=== PATIENT | female | born 1980 | race African-American/Black ===

== ENCOUNTER 2018-10-11 17:56 | Emergency (ER) | payer MEDICAID ==
[~2018-10-11] VITALS: Ht 167.6 cm; Wt 86.2 kg
[2018-10-11 18:09] VITALS: BP_SYST 145
[2018-10-11 23:44] VITALS: BP_SYST 138
[2018-10-11] MEDS ORDERED: IBUPROFEN 800 MG TABLET PO ONE (23:45)
[2018-10-11] MEDS ORDERED: SULFAMETHOXAZOLE/TRIMETHOPR DS 1 TABLET PO ONE (23:45)
== END 2018-10-11 23:45 | disposition home or self-care (01) ==
LOC: SED 17:56
DX: S40.862A Insect bite (nonvenomous) of left upper arm, initial encounter (principal); S40.861A Insect bite (nonvenomous) of right upper arm, initial encounter; S80.862A Insect bite (nonvenomous), left lower leg, initial encounter; S80.861A Insect bite (nonvenomous), right lower leg, initial encounter; L03.116 Cellulitis of left lower limb; L03.115 Cellulitis of right lower limb; L03.114 Cellulitis of left upper limb; L03.113 Cellulitis of right upper limb; R03.0 Elevated blood-pressure reading, without diagnosis of hypertension; W57.XXXA Bitten or stung by nonvenomous insect and other nonvenomous arthropods, initial encounter; Y93.89 Activity, other specified; Y92.89 Other specified places as the place of occurrence of the external cause; Y99.8 Other external cause status
CPT/HCPCS: 99283

== ENCOUNTER 2018-10-23 12:44 | Emergency (ER) | payer MEDICAID ==
[~2018-10-23] VITALS: Ht 170.2 cm; Wt 86.2 kg
[2018-10-23 12:44] VITALS: BP_SYST 127
[2018-10-23] MEDS ORDERED: PREDNISONE 20 MG TABLET PO ONE (13:15)
[2018-10-23] MEDS ORDERED: IBUPROFEN 800 MG TABLET PO ONE (13:15)
[2018-10-23 14:28] VITALS: BP_SYST 118
== END 2018-10-23 14:27 | disposition home or self-care (01) ==
LOC: SED 12:44
DX: S40.861A Insect bite (nonvenomous) of right upper arm, initial encounter (principal); S80.861A Insect bite (nonvenomous), right lower leg, initial encounter; M79.601 Pain in right arm; W57.XXXA Bitten or stung by nonvenomous insect and other nonvenomous arthropods, initial encounter; Y93.89 Activity, other specified; Y92.89 Other specified places as the place of occurrence of the external cause; Y99.8 Other external cause status
CPT/HCPCS: 93971; 99284; J7512

== ENCOUNTER 2020-01-30 12:57 | Emergency (ER) | payer MEDICAID, SELFPAY ==
[~2020-01-30] VITALS: Ht 172.7 cm; Wt 90.7 kg
[2020-01-30 12:57] VITALS: BP_SYST 130
--- NOTE | 2020-01-30 12:57 | NUR ---
BROUGHT BACK TO BED #5 AND TRIAGED. REPORT GIVEN TO ISAIAS
--- NOTE | 2020-01-30 13:00 | NUR ---
Patient arrived in the ED c/o fatigue,diarrhea, nausea and vomiting for the last 7 days. Denied any chest pain or shortness of breath. Denied any fevers and chills. Patient is alert and oriented x4, respirations even and unlabored, speaking in full sentences, and ambulating with a steady gait. VSS, pain level 5/10. Informed of the approximate wait time. Instructed to notify ED staff for any changes in condition or worsening of symptoms while waiting to be seen by an ED provider. Patient verbalized understanding.
--- NOTE | 2020-01-30 13:18 | NUR ---
ER Dr. Lam at bedside examining patient.
[2020-01-30] MEDS ORDERED: DIPHENHYDRAMINE INJ 50 MG/ML VIAL IVP ONE (13:30)
[2020-01-30] MEDS ORDERED: MORPHINE 4 MG/ML INJ. SYRINGE IVP ONE (13:30)
[2020-01-30] MEDS ORDERED: NACL 0.9% 1,000 ML IV ONE (13:30)
--- NOTE | 2020-01-30 13:30 | NUR ---
# 18 gauge angiocath placed to RAC. Use of asceptic technique. Opsite placed over site. Blood return noted. Blood for lab drawn from site. Flushed with 10 cc of normal saline. No evidence of infiltration noted. Patient tolerated well.
--- NOTE | 2020-01-30 13:54 | NUR ---
Patient stated, "she can't be , she had a tubal ligation."
--- NOTE | 2020-01-30 14:01 | NUR ---
Patient taken to X-ray as ordered by Dr. Lam, in stable condition.
[2020-01-30 14:04] LABS: BASOPHILS % (AUTO) 0.9 % (0.0-2.0); EOSINOPHILS # (AUTO) 0.1 K/uL (0.0-0.4); EOSINOPHILS % (AUTO) 2.1 % (0.0-4.0); HEMOGLOBIN 12.7 g/dL (12.0-16.0); LYMPHOCYTES # (AUTO) 1.8 K/uL (1.0-5.5); LYMPHOCYTES % (AUTO) 33.1 % (20.5-51.5); MEAN CORPUSCULAR HEMOGLOBIN 30 pg (27-31); MEAN CORPUSCULAR HGB CONC 34 % (32-36); MEAN CORPUSCULAR VOLUME 89 fL (79.0-98.0); MONOCYTES # (AUTO) 0.4 K/uL (0.0-1.0); MONOCYTES % (AUTO) 6.5 % (1.7-9.3); NEUTROPHILS # (AUTO) 3.2 K/uL (1.8-7.7); NEUTROPHILS % (AUTO) 57.4 % (40.0-70.0); PLATELET COUNT (AUTO) 313 K/uL (130-430); RED BLOOD CELL COUNT(AUTO) 4.18 MIL/uL (4.2-6.2); RED CELL DISTRIBUTION WIDTH 12.9 % (9.0-15.0); WHITE BLOOD COUNT (AUTO) 5.5 K/uL (4.8-10.8)
[2020-01-30 14:11] LABS: BILIRUBIN,URINE NEGATIVE (NEGATIVE); CLARITY/URINE CLEAR (CLEAR); COLOR,URINE YELLOW (YELLOW); GLUCOSE,URINE NEGATIVE (NEGATIVE); KETONES,URINE NEGATIVE (NEGATIVE); LEUKOCYTE ESTERASE ,URINE NEGATIVE (NEGATIVE); NITRITE, URINE NEGATIVE (NEGATIVE); PROTEIN URINE NEGATIVE (NEGATIVE); UROBILINOGEN,URINE 0.2 (0.2-1.0)
[2020-01-30 14:18] LABS: BLOOD, URINE TRACE (NEGATIVE)
--- NOTE | 2020-01-30 14:25 | NUR ---
Swabbed for Covid Antigen as ordered by Dr. Lam. Patient tolerated the procedure well.
[2020-01-30 14:26] LABS: CREATININE 1.05 mg/dL (0.55-1.30); INR 0.9 (0.8-1.2); POTASSIUM 3.6 mmol/L (3.5-5.1); PROTHROMBIN TIME 8.9 SECS (9.5-12.5)
[2020-01-30 14:42] LABS: BACTERIA,URINE RARE /HPF (None Seen); WBC,URINE 0-3 /HPF (0-3)
[2020-01-30 14:43] LABS: ALBUMIN 3.4 g/dL (3.4-4.8); TOTAL BILIRUBIN 0.3 mg/dL (0.0-1.0)
[2020-01-30 14:43] LABS: BARBITURATE, URINE NEGATIVE (NEG <=200); BENZODIAZEPINE, URINE NEGATIVE (NEG <=150); CANNABINOID, URINE POSITIVE (NEG <=50); COCAINE, URINE NEGATIVE (NEG <=150); METHAMPHETAMINES SCREEN,URINE POSITIVE (NEG <=500); OPIATE, URINE NEGATIVE (NEG <=100); PHENCYCLIDINE SCREEN,URINE NEGATIVE (NEG <=25); UR TRICYCLIC ANTIDEPRESSANTS NEGATIVE (NEG <=300); URINE AMPHETAMINE POSITIVE (NEG <=500); URINE METHADONE NEGATIVE (NEG <=200); URINE OXYCODONE SCREEN NEGATIVE (NEG <=100); URINE PROPOXYPHENE SCREEN NEGATIVE (NEG <=300)
[2020-01-30 16:19] VITALS: BP_SYST 130
== END 2020-01-30 16:17 | disposition home or self-care (01) ==
LOC: SED 12:57
DX: R10.84 Generalized abdominal pain (principal); F15.10 Other stimulant abuse, uncomplicated; F12.90 Cannabis use, unspecified, uncomplicated; I10 Essential (primary) hypertension; E11.9 Type 2 diabetes mellitus without complications; E78.5 Hyperlipidemia, unspecified; Z20.828 Contact with and (suspected) exposure to other viral communicable diseases
CPT/HCPCS: 36415; 74176; 76376; 80053; 80307; 81000; 81025; 83605; 83690; 85025; 85610; 87040; 87426; 93005; 96361; 96374; 96375; 99285; J7030

== ENCOUNTER 2021-05-10 09:34 | Emergency (ER) | payer MEDICAID, SELFPAY ==
[~2021-05-10] VITALS: Ht 170.2 cm; Wt 90.7 kg
[2021-05-10 09:36] VITALS: BP_SYST 139
[2021-05-10] MEDS ORDERED: ONDANSETRON HCL 4 MG/2 ML VIAL IVP ONE (10:15)
[2021-05-10] MEDS ORDERED: NACL 0.9% 1,000 ML IV ONE ×2 (10:15)
[2021-05-10 10:31] LABS: BASOPHILS # (AUTO) 0.1 K/uL (0.0-0.2); EOSINOPHILS # (AUTO) 0.1 K/uL (0.0-0.4); EOSINOPHILS % (AUTO) 1.2 % (0.0-4.0); HEMATOCRIT 39.5 % (36-48); HEMOGLOBIN 13.5 g/dL (12.0-16.0); LYMPHOCYTES # (AUTO) 2.4 K/uL (1.0-5.5); MEAN CORPUSCULAR HEMOGLOBIN 29 pg (27-31); MEAN CORPUSCULAR HGB CONC 34 % (32-36); MEAN CORPUSCULAR VOLUME 85 fL (79.0-98.0); MONOCYTES # (AUTO) 0.5 K/uL (0.0-1.0); MONOCYTES % (AUTO) 5.9 % (1.7-9.3); NEUTROPHILS % (AUTO) 61.9 % (40.0-70.0); PLATELET COUNT (AUTO) 326 K/uL (130-430); RED BLOOD CELL COUNT(AUTO) 4.65 MIL/uL (4.2-6.2); RED CELL DISTRIBUTION WIDTH 13.5 % (9.0-15.0); WHITE BLOOD COUNT (AUTO) 8.1 K/uL (4.8-10.8)
[2021-05-10 10:50] LABS: BILIRUBIN,URINE NEGATIVE (NEGATIVE); BLOOD, URINE NEGATIVE (NEGATIVE); COLOR,URINE YELLOW (YELLOW); GLUCOSE,URINE NEGATIVE (NEGATIVE); KETONES,URINE NEGATIVE (NEGATIVE); LEUKOCYTE ESTERASE ,URINE NEGATIVE (NEGATIVE); NITRITE, URINE NEGATIVE (NEGATIVE); PROTEIN URINE NEGATIVE (NEGATIVE); UROBILINOGEN,URINE 0.2 (0.2-1.0)
[2021-05-10 10:55] LABS: CLARITY/URINE SLIGHTLY HAZY (CLEAR)
[2021-05-10 11:08] LABS: CALCIUM 9.4 mg/dL (8.4-11.0); CREATININE 0.97 mg/dL (0.55-1.30); POTASSIUM 3.2 mmol/L (3.5-5.1)
[2021-05-10 11:15] LABS: TOTAL BILIRUBIN 0.3 mg/dL (0.0-1.0)
[2021-05-10 12:00] VITALS: BP_SYST 139
== END 2021-05-10 12:06 | disposition left against medical advice (07) ==
LOC: SED 09:34
DX: K80.20 Calculus of gallbladder without cholecystitis without obstruction (principal); I10 Essential (primary) hypertension; E11.9 Type 2 diabetes mellitus without complications; F12.90 Cannabis use, unspecified, uncomplicated; F17.290 Nicotine dependence, other tobacco product, uncomplicated
CPT/HCPCS: 36415; 74176; 76376; 80053; 81003; 81025; 83690; 85025; 96361; 96374; 99284; J2405; J7030

== ENCOUNTER 2021-11-24 23:10 | Emergency (ER) | payer MEDICAID ==
[~2021-11-24] VITALS: Ht 162.6 cm; Wt 93.0 kg
[2021-11-24 23:34] VITALS: BP_SYST 133
--- NOTE | 2021-11-24 23:40 | NUR ---
Patient to ER bed 06 to gown for evaluation. Side rails up. Report given to moi Nobles
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
--- NOTE | 2021-11-24 23:43 | NUR ---
ER at bedside examining patient.
--- NOTE | 2021-11-25 00:05 | NUR ---
Pt unable to provide urine sample at this time, states she will try later on. Per pt, she is not due to tubal ligation hx.
--- NOTE | 2021-11-25 00:38 | NUR ---
US at bedside for imaging.
--- NOTE | 2021-11-25 03:10 | NUR ---
Patient given written and verbal discharge instructions and verbalizes understanding. ER MD discussed with patient the results and treatment provided. Patient in stable condition. ID arm band removed. no Rx of given. Patient educated on pain management and to follow up with PMD. Pain Scale 6/10. Opportunity for questions provided and answered. Medication side effect fact sheet provided.
[2021-11-25 03:11] VITALS: BP_SYST 124
== END 2021-11-25 03:11 | disposition home or self-care (01) ==
LOC: SED 23:10
DX: R10.2 Pelvic and perineal pain (principal); R19.7 Diarrhea, unspecified; E11.9 Type 2 diabetes mellitus without complications; Z79.899 Other long term (current) drug therapy
CPT/HCPCS: 76830-TC; 76857; 99284

== ENCOUNTER 2022-04-16 10:09 | Inpatient (IN) | payer MEDICAID ==
[~2022-04-16] VITALS: Ht 165.1 cm; Wt 93.0 kg
[2022-04-16 10:13] VITALS: BP_SYST 160
[2022-04-16] MEDS ORDERED: iohexoL 350 mgI/mL, 100 ML INFUS..BTL IV ONE (10:27)
[2022-04-16 11:04] LABS: BASOPHILS # (AUTO) 0.1 K/uL (0.0-0.2); BASOPHILS % (AUTO) 1.2 % (0.0-2.0); EOSINOPHILS # (AUTO) 0.2 K/uL (0.0-0.4); EOSINOPHILS % (AUTO) 2.9 % (0.0-4.0); HEMATOCRIT 32.5 % (36-48); HEMOGLOBIN 11.3 g/dL (12.0-16.0); LYMPHOCYTES # (AUTO) 2.2 K/uL (1.0-5.5); LYMPHOCYTES % (AUTO) 40.5 % (20.5-51.5); MEAN CORPUSCULAR HEMOGLOBIN 30 pg (27-31); MEAN CORPUSCULAR HGB CONC 35 % (32-36); MEAN CORPUSCULAR VOLUME 86 fL (79.0-98.0); MONOCYTES # (AUTO) 0.4 K/uL (0.0-1.0); MONOCYTES % (AUTO) 6.5 % (1.7-9.3); NEUTROPHILS # (AUTO) 2.6 K/uL (1.8-7.7); NEUTROPHILS % (AUTO) 48.9 % (40.0-70.0); PLATELET COUNT (AUTO) 310 K/uL (130-430); RED CELL DISTRIBUTION WIDTH 13.6 % (9.0-15.0); WHITE BLOOD COUNT (AUTO) 5.4 K/uL (4.8-10.8)
[2022-04-16 11:10] LABS: ANION GAP 6 (5-15); CALCIUM 8.8 mg/dL (8.4-11.0); CHLORIDE 99 mmol/L (98-107); CREATININE 0.78 mg/dL (0.55-1.30); GLUCOSE 156 mg/dL (70-99); UREA NITROGEN, BLOOD 11 mg/dL (8-21)
[2022-04-16 11:12] LABS: GFR AFRICAN AMERICAN 104 mL/min (>90)
[2022-04-16 11:15] LABS: INR 1.1 (0.8-1.2); PROTHROMBIN TIME 11.4 SECS (9.5-12.5)
[2022-04-16 11:17] LABS: ALANINE AMINOTRANSFERASE 26 U/L (12-78); ALBUMIN 3.3 g/dL (3.4-4.8); ASPARTATE AMINOTRANSFERASE 15 U/L (10-37); TOTAL BILIRUBIN 0.3 mg/dL (0.0-1.0)
[2022-04-16 12:31] LABS: BARBITURATE, URINE NEGATIVE (NEG <=200); BENZODIAZEPINE, URINE NEGATIVE (NEG <=150); CANNABINOID, URINE POSITIVE (NEG <=50); COCAINE, URINE NEGATIVE (NEG <=150); METHAMPHETAMINES SCREEN,URINE POSITIVE (NEG <=500); PHENCYCLIDINE SCREEN,URINE POSITIVE (NEG <=25); URINE AMPHETAMINE POSITIVE (NEG <=500); URINE METHADONE NEGATIVE (NEG <=200)
[2022-04-16 12:32] LABS: OPIATE, URINE NEGATIVE (NEG <=100)
[2022-04-16] MEDS ORDERED: LOSA50TA3 PO (12:46)
[2022-04-16] MEDS ORDERED: METF-379 PO (12:46)
[2022-04-16] MEDS ORDERED: ATOM25CA6 PO (12:46)
[2022-04-16] MEDS ORDERED: THIA100T70 PO (12:46)
[2022-04-16] MEDS ORDERED: HYDR25TA4 PO (12:46)
[2022-04-16] MEDS ORDERED: DOCUSATE SODIUM 100 MG CAPSULE PO PRN (14:45)
[2022-04-16] MEDS ORDERED: LORazepam 2 MG/ML VIAL IVP PRN (14:45)
[2022-04-16] MEDS ORDERED: ZOLPIDEM TARTRATE 5 MG TABLET PO PRN (14:45)
[2022-04-16] MEDS ORDERED: ACETAMINOPHEN 325 MG TABLET PO PRN (14:45)
[2022-04-16] MEDS ORDERED: MUPIROCIN 2% TOPICAL OINTMENT 22 GM NS PRN (14:45)
[2022-04-16] MEDS ORDERED: NACL 0.9% 1,000 ML IV SCH (14:45)
[2022-04-16] MEDS ORDERED: DEXTROSE 50% JECT 50 ML DISP.SYRIN IVP PRN (14:45)
[2022-04-16] MEDS ORDERED: ONDANSETRON HCL 4 MG/2 ML VIAL IVP PRN (14:45)
[2022-04-16] MEDS ORDERED: POTASSIUM CHLORIDE 20 MEQ TAB.PRT.SR PO PRN (14:45)
[2022-04-16] MEDS ORDERED: INSULIN LISPRO SLIDING SCALE 100 UNITS/ML, 3 ML VIAL (humaLOG) SUBCUT PRN (14:45)
[2022-04-16] MEDS ORDERED: MAGNESIUM SULFATE 50 ML IV PRN (14:45)
[2022-04-16 16:00] VITALS: BP_SYST 121
[2022-04-16 16:43] VITALS: BP_SYST 121
[2022-04-16 19:51] LABS: CHOLESTEROL 204 mg/dL (<200); HDL CHOLESTEROL 44 mg/dL (>55); TRIGLYCERIDES 235 mg/dL (30-150)
[2022-04-17] MEDS ORDERED: LOSARTAN POTASSIUM 50 MG TABLET (COZAAR) PO SCH (09:00)
[2022-04-17] MEDS ORDERED: ATOMOXETINE HCL 25 MG PO SCH (09:00)
[2022-04-17] MEDS ORDERED: metFORMIN HCL 500 MG TABLET PO SCH (09:00)
[2022-04-17] MEDS ORDERED: ASPIRIN 81 MG TABLET(ECOTRIN) PO SCH (09:00)
[2022-04-17] MEDS ORDERED: HYDROCHLOROTHIAZIDE 25 MG TABLET (HCTZ) PO SCH (09:00)
== END 2022-04-16 20:17 | disposition left against medical advice (07) | DRG 47 ==
LOC: SED 10:09 → SMU 13:01
PROVIDERS: ADMIT General Practice; ATTEND General Practice
DX: G45.9 Transient cerebral ischemic attack, unspecified (principal); E11.9 Type 2 diabetes mellitus without complications; Z88.0 Allergy status to penicillin; E78.5 Hyperlipidemia, unspecified; Z20.822 Contact with and (suspected) exposure to COVID-19; I10 Essential (primary) hypertension; F19.10 Other psychoactive substance abuse, uncomplicated
CPT/HCPCS: 36415; 70450-TC; 70496; 70498; 71045; 76376; 80053; 80061; 80307; 83037; 84484; 85025; 85610-TC; 85730-TC; 86886; 86900; 86901; 87081; 93005; 96360; 99285; Q9967

== ENCOUNTER 2022-12-23 17:33 | Emergency (ER) | payer MEDICAID ==
[~2022-12-23] VITALS: Ht 167.6 cm; Wt 90.7 kg
[~2022-12-23 17:33] MED LIST: ATOM25CA6 PO; HYDR25TA4 PO; LOSA-413 PO; METF-379 PO; THIA100T70 PO
[2022-12-23 17:40] VITALS: BP_SYST 151; PULSE 120; RESP 18; TEMP 98.3; O2SAT 98
[2022-12-23 18:53] LABS: BILIRUBIN,URINE NEGATIVE (NEGATIVE); CLARITY/URINE CLEAR (CLEAR); COLOR,URINE YELLOW (YELLOW); GLUCOSE,URINE NEGATIVE (NEGATIVE); KETONES,URINE NEGATIVE (NEGATIVE); LEUKOCYTE ESTERASE ,URINE NEGATIVE (NEGATIVE); NITRITE, URINE NEGATIVE (NEGATIVE); PH,URINE 6.5 (5.0-8.0); PROTEIN URINE NEGATIVE (NEGATIVE); UROBILINOGEN,URINE 0.2 (0.2-1.0)
[2022-12-23 18:55] LABS: HCG,QUAL RESULT NEGATIVE (NEGATIVE)
[2022-12-23 18:56] LABS: BLOOD, URINE TRACE (NEGATIVE)
[2022-12-23 19:02] LABS: BACTERIA,URINE RARE /HPF (None Seen); MUCUS,URINE None Seen /LPF (None Seen); RBC,URINE NONE SEEN /HPF (0-3); WBC,URINE 0-3 /HPF (0-3)
[2022-12-23] MEDS ORDERED: IBUP-1971 PO (19:54)
[2022-12-23] MEDS ORDERED: DICL20GE TP (19:54)
[2022-12-23 20:06] VITALS: BP_SYST 132; PULSE 88; RESP 18; TEMP 98.1; O2SAT 98
== END 2022-12-23 20:06 | disposition home or self-care (01) ==
LOC: SED 17:33
DX: N76.89 Other specified inflammation of vagina and vulva (principal); E11.9 Type 2 diabetes mellitus without complications; I10 Essential (primary) hypertension; E78.5 Hyperlipidemia, unspecified; Z79.899 Other long term (current) drug therapy
CPT/HCPCS: 81000; 81025; 84703; 99284